=== PATIENT | male | born 1945 | race Caucasian/White ===

== ENCOUNTER → 2019-11-16 | Day surgery (SDC) | payer MEDICARE, OTHER ==
[~2019-11-16] MED LIST: Ketamine 200 MG/20 ML MDV IV ONE; Lactated Ringers 1,000 ML IV SCH; Phenylephrine 1% 10 MG/ML SDV IV ONE; Propofol 200 MG/20 ML SDV IV ONE; fentaNYL 100 MCG/2 ML SDV IV ONE
[2019-11-16 09:45] VITALS: BP 125/69; PULSE 50
--- NOTE | 2019-11-16 19:06 | OR ---
DATE OF OPERATION: 11/16/2019 PREOPERATIVE DIAGNOSIS: HEMATOCHEZIA. POSTOPERATIVE DIAGNOSIS: HEMATOCHEZIA. SURGEON: Nino Hsu MD PROCEDURE: FULL-LENGTH COLONOSCOPY WITH BIOPSIES X2. ANESTHESIA: MAC. COMPLICATIONS: None. SPECIMEN: Distal rectal biopsy x2. FINDINGS: 1. Full-length colonoscopy. 2. Extremely poor prep. 3. Pandiverticulosis, moderate. 4. Distal proctitis. RECOMMENDATIONS: The patient will be placed on Anusol HC suppositories. He will have a followup colonoscopy in 5 years. INDICATIONS: The patient has been having some occasional hematochezia and a colonoscopy 5 years ago, which was with a very poor prep. We elected to proceed with diagnostic scope. DESCRIPTION OF PROCEDURE: The patient was prepped and draped, placed in the left lateral decubitus position. A lubricated Olympus colonoscope was inserted and ultimately advanced to the cecum. Direct visualization of the ileocecal valve and appendiceal orifice was accomplished. The bowel prep was very poor. Most of the areas could be somewhat suctioned, but the stool was dark and heavy, and at least a third of the colon could not be seen well upon withdrawal. The patient does have pandiverticulosis extending from deep in the right colon all the way to the rectosigmoid junction, moderate in severity in most places. No inflammatory lesions were seen throughout the right transverse, descending, and sigmoid areas. I could find no polyps, masses, ulceration, or bleeding sites. No vascular abnormalities or obvious signs of colitis. The rectal vault appeared benign until its most distal portion in the perianal region. The patient had fairly prominent and very friable proctitis. We did do 2 biopsies of the area. Air was then suctioned, scope removed without complication. RAVI/MIRNA /[id number]
== END ==
LOC: CC.SDS 07:28
PROVIDERS: ATTEND Family Medicine
DX: K57.30 Diverticulosis of large intestine without perforation or abscess without bleeding (principal); K62.89 Other specified diseases of anus and rectum; K21.9 Gastro-esophageal reflux disease without esophagitis; E03.9 Hypothyroidism, unspecified; E11.9 Type 2 diabetes mellitus without complications; C61 Malignant neoplasm of prostate; E01.0 Iodine-deficiency related diffuse (endemic) goiter; Z98.890 Other specified postprocedural states; Z79.890 Hormone replacement therapy; Z79.899 Other long term (current) drug therapy; Z87.891 Personal history of nicotine dependence
CPT/HCPCS: 00811; J2370; J2704; J3010; J7120